=== PATIENT | male | born 1980 | race Caucasian/White ===

== ENCOUNTER 2019-11-27 06:06 | Emergency (ER) | payer BC ==
[2019-11-27 06:18] VITALS: O2SAT 99
[2019-11-27] MEDS ORDERED: Sodium Chloride 0.9% 1000 ML 1,000 ML IV STA (06:22)
[2019-11-27] MEDS ORDERED: Zofran 4 MG/2 ML VIAL IV ONE (06:22)
[2019-11-27] MEDS ORDERED: Hydromorphone 1 mg/ml Ampule IV ONE (06:22)
[2019-11-27] MEDS ORDERED: TORAdol 30 mg Injection IV ONE (06:22)
[2019-11-27] MEDS ORDERED: Sodium Chloride 0.9% 1000 ML 1,000 ML ONE (06:24)
[2019-11-27] MEDS ORDERED: TORAdol 30 mg Injection ONE (06:30)
--- NOTE | 2019-11-27 06:34 | ERPHSYRPT ---
- History of Present Illness Time Seen by Provider: 11/27/19 06:31 Historian: patient Exam Limitations: no limitations Patient Subjective Stated Complaint: pt states he started having lt side pain approx 30 min prior to arrival to er. has hx of kidney stones Triage Nursing Assessment: pt alert and oriented, answers questions approp. pt back per wheelchair, transfers to stretcher per self. skin warm and dry. abd soft and nontender. bowel sounds present x4. Physician History: Patient is a 39-year-old white male who has a history of kidney stones who presents with sudden onset of left flank and left lower quadrant pain radiating to the groin area which started 30 minutes prior to arrival. This if it is a kidney stone will be his fourth. Shortly after arrival in the ER his pain did improve markedly. Timing/Duration: today Activities at Onset: none Quality: sharpness, stabbing Abdominal Pain Onset Location: LLQ, flank (left) Pain Radiation: groin Severity of Pain-Max: severe Severity of Pain-Current: mild Modifying Factors: Improves With: nothing Associated Symptoms: diaphoresis, nausea Previous symptoms: same symptoms as today Allergies/Adverse Reactions: No Known Drug Allergies Allergy (Verified 11/27/19 06:18) Home Medications: No Reportable Medications [No Reported Medications] 11/27/19 [History] Hx Tetanus, Diphtheria Vaccination/Date Given: Yes Hx Influenza Vaccination/Date Given: Yes Hx Pneumococcal Vaccination/Date Given: No Immunizations Up to Date: Yes Travel Risk - International Travel Have you traveled outside of the country in past 3 weeks: No - Coronavirus Screening Are you exhibiting any of the following symptoms?: No Close contact with a COVID-19 positive Pt in past 14-21 Days: No - Review of Systems Constitutional: No Fever, No Chills Eyes: No Symptoms Ears, Nose, & Throat: No Symptoms Respiratory: No Cough, No Dyspnea Cardiac: No Chest Pain, No Edema, No Syncope Abdominal/Gastrointestinal: Abdominal Pain, Nausea, No Vomiting, No Diarrhea Genitourinary Symptoms: No Dysuria Musculoskeletal: No Back Pain, No Neck Pain Skin: No Rash Neurological: No Dizziness, No Focal Weakness, No Sensory Changes Psychological: No Symptoms Endocrine: No Symptoms All Other Systems: Reviewed and Negative - Past Medical History Pertinent Past Medical History: Yes Other Medical History: hx kidney stones - Past Surgical History Past Surgical History: No - Social History Smoking Status: Never smoker Exposure to second hand smoke: No Drug Use: none Patient Lives Alone: No - Nursing Vital Signs Nursing Vital Signs: Initial Vital Signs Pulse Rate 91 H 11/27/19 06:10 Respiratory Rate 18 11/27/19 06:10 Blood Pressure 139/105 11/27/19 06:10 O2 Sat by Pulse Oximetry 99 11/27/19 06:10 Pain Scale Pain Intensity 6 - Physical Exam General Appearance: no apparent distress, alert Eye Exam: PERRL/EOMI, eyes nml inspection Ears, Nose, Throat Exam: normal ENT inspection, pharynx normal, moist mucous membranes Neck Exam: normal inspection, non-tender, supple, full range of motion Respiratory Exam: normal breath sounds, lungs clear, No respiratory distress Cardiovascular Exam: regular rate/rhythm, normal heart sounds Gastrointestinal/Abdomen Exam: soft, No tenderness, No mass Back Exam: normal inspection, normal range of motion, No CVA tenderness, No vertebral tenderness Extremity Exam: normal inspection, normal range of motion, pelvis stable Neurologic Exam: alert, oriented x 3, cooperative, normal mood/affect, nml cerebellar function, sensation nml, No motor deficits Skin Exam: normal color, warm, dry SpO2: 99 - Course Nursing assessment & vital signs reviewed: Yes - CT Exams Abdomen/Pelvis CT Interpretation: Other (My review of the CT indicates a 3 mm stone in the bladder) Ordered Tests: Active Orders 24 hr Category Date Time Status ABDOMEN AND PELVIS W/0 CONTRAS [CT] Stat Exams 11/27/19 06:21 Ordered CBC W DIFF Stat Lab 11/27/19 06:22 Ordered CMP Stat Lab 11/27/19 06:22 Ordered Manual Differential NC Stat Lab 11/27/19 06:22 Completed UA W/RFX UR CULTURE Stat Lab 11/27/19 06:22 Uncollected Medication Summary Generic Name Dose Route Start Last Admin Trade Name Freq PRN Reason Stop Dose Admin Sodium Chloride 1,000 mls @ 999 mls/hr 11/27/19 06:22 11/27/19 06:26 Sodium Chloride 0.9% 1000 Ml IV 11/27/19 07:22 999 mls/hr .Q1H1M STA Administration Discontinued Medications Generic Name Dose Route Start Last Admin Trade Name Freq PRN Reason Stop Dose Admin Hydromorphone HCl 1 mg 11/27/19 06:22 Hydromorphone 1 Mg/Ml Ampule IV 11/27/19 06:23 STAT ONE Sodium Chloride Confirm 11/27/19 06:24 Sodium Chloride 0.9% 1000 Ml Administered 11/27/19 06:25 Dose 1,000 mls @ ud .ROUTE .STK-MED ONE Ketorolac Tromethamine 30 mg 11/27/19 06:22 11/27/19 06:30 Toradol 30 Mg Injection IV 11/27/19 06:23 30 mg STAT ONE Administration Ketorolac Tromethamine Confirm 11/27/19 06:30 Toradol 30 Mg Injection Administered 11/27/19 06:31 Dose 30 mg .ROUTE .STK-MED ONE Ondansetron HCl 4 mg 11/27/19 06:22 Zofran 4 Mg/2 Ml Vial IV 11/27/19 06:23 STAT ONE Lab/Rad Data: Laboratory Result Diagrams 11/27/19 06:22 11/27/19 06:22 Laboratory Results 11/27/19 11/27/19 Range/Units 06:22 06:22 WBC 8.5 (4.0-10.5) K/mm3 RBC 5.08 (4.1-5.6) M/mm3 Hgb 15.8 (12.5-18.0) gm/dl Hct 46.6 (42-50) % MCV 91.7 (78-100) fl MCH 31.1 (26-32) pg MCHC 33.9 (32-36) g/dl RDW 12.3 (11.5-14.0) % Plt Count 216 (150-450) K/mm3 MPV 11.5 H (7.5-11.0) fl Sodium 139 (137-145) mmol/L Potassium 3.4 L (3.5-5.1) mmol/L Chloride 103 (98-107) mmol/L Carbon Dioxide 26 (22-30) mmol/L Anion Gap 13.7 (5-15) MEQ/L BUN 15 (9-20) mg/dL Creatinine 1.15 (0.66-1.25) mg/dL Estimated GFR > 60.0 ML/MIN Glucose 107 H (74-106) mg/dL Calcium 9.2 (8.4-10.2) mg/dL Total Bilirubin 0.90 (0.2-1.3) mg/dL AST 29 (17-59) U/L ALT 18 (0-50) U/L Alkaline Phosphatase 82 (38-126) U/L Serum Total Protein 8.1 (6.3-8.2) g/dL Albumin 4.7 (3.5-5.0) g/dL - Progress Progress: improved Progress Note: 11/27/19 07:06 Patient's pain resolved almost completely shortly after his arrival in the ER CT scan shows what appears to be a 3 mm stone in the bladder with his first uri nation he did pass an approximately 3 mm stone. And his pain is resolved. - Departure Departure Disposition: Home Clinical Impression: Left ureteral stone Condition: Stable Critical Care Time: No Referrals: TRACE TAYLOR MD [Primary Care Provider] - Instructions: Kidney Stones (DC)
[2019-11-27 06:47] LABS: Hematocrit 46.6 % (42-50); Hemoglobin 15.8 gm/dl (12.5-18.0); Mean Cell Volume 91.7 fl (78-100); Mean Corpuscular Hemoglobin 31.1 pg (26-32); Mean Corpuscular Hgb Concent. 33.9 g/dl (32-36); Mean Platelet Volume 11.5 fl (7.5-11.0); Platelet Count 216 K/mm3 (150-450); Red Blood Count 5.08 M/mm3 (4.1-5.6); Red Cell Distribution Width 12.3 % (11.5-14.0); White Blood Count 8.5 K/mm3 (4.0-10.5)
[2019-11-27 07:02] LABS: ALBUMIN 4.7 g/dL (3.5-5.0); ALKALINE PHOSPHATASE 82 U/L (38-126); ANION GAP 13.7 MEQ/L (5-15); BLOOD UREA NITROGEN 15 mg/dL (9-20); CHLORIDE 103 mmol/L (98-107); Calcium 9.2 mg/dL (8.4-10.2); Carbon Dioxide 26 mmol/L (22-30); Creatinine 1 1.15 mg/dL (0.66-1.25); Glucose 107 mg/dL (74-106); Potassium 3.4 mmol/L (3.5-5.1); SGOT/AST 29 U/L (17-59); SGPT/ALT 18 U/L (0-50); SODIUM 139 mmol/L (137-145); Total Protein 8.1 g/dL (6.3-8.2)
[2019-11-27 07:14] VITALS: BP 127/84; PULSE 77
[2019-11-27 07:21] LABS: Appearance SLIGHTLY CLOUDY (CLEAR); Bilirubin NEGATIVE (NEGATIVE); Blood MODERATE Ery/ul (0-5); Glucose NEGATIVE (NEGATIVE); Ketones NEGATIVE (NEGATIVE); Leukocyte Esterase NEGATIVE (NEGATIVE); Mucus SLIGHT /HPF (NEGATIVE); Nitrite NEGATIVE (NEGATIVE); Protein,Urine Dip NEGATIVE (Negative); Specific Gravity 1.021 (1.005-1.025); Urobilinogen NEGATIVE mg/dL (0-1); WBC 0-2 /HPF (0-5)
[2019-11-27 07:35] LABS: BAND 2 % (0.0-2.0); Eosinophil 2 % (0.00-3.0); Lymphocytes 36 % (24-44); Monocyte 7 % (0.0-12.0); Neutrophils 53 % (36.-66.); Platelet Estimate NORMAL (NORMAL); Total Cells Counted 100
--- NOTE | 2019-11-27 19:16 | XRAY ---
Indication: Left flank pain. History stone. Multiple contiguous axial images obtained through the abdomen and pelvis without contrast as ordered. Comparison: None Lung bases are clear. Heart is not enlarged. Noncontrasted stomach and bowel loops appear nonobstructed. Normal appendix. No free fluid/air. Left kidney demonstrates at least 3 and right kidney demonstrates at least 2 nonobstructing micro-calculi. Posterior urinary bladder demonstrates punctate calculus. No hydronephrosis or hydroureter. Remaining liver, gallbladder, pancreas, spleen, adrenal glands, kidneys, ureters, bladder, and aorta appear unremarkable for noncontrast exam. Osseous structures intact. No ventral or inguinal hernias. Impression: 1. Urinary bladder punctate calculus without hydronephrosis/hydroureter. Additional bilateral renal micro-calculi. 2. Remaining CT abdomen/pelvis without contrast exam is negative. Comment: Preliminary interpretation was made by [facility]. No critical discrepancy.
== END 2019-11-27 07:19 | disposition home or self-care (01) ==
LOC: ED 06:06
DX: N20.1 Calculus of ureter (principal)
CPT/HCPCS: 36415; 74176; 80053; 81001; 85025; 96360; 96374; 99284; J1885

== ENCOUNTER 2021-01-06 04:47 | Emergency (ER) | payer BC ==
[2021-01-06] MEDS ORDERED: Sodium Chloride 0.9% 1000 ML 1,000 ML IV STA (04:58)
--- NOTE | 2021-01-06 04:58 | ERPHSYRPT ---
- History of Present Illness Time Seen by Provider: 01/06/21 04:58 Historian: patient Exam Limitations: no limitations Physician History: This a 40-year-old white male who has had recurrent ureterolithiasis in the past and presents with sudden onset of left flank pain radiating down into his left groin that occurred prior to arrival to the emergency department. Patient's symptoms are classic for his other episodes of ureterolithiasis. He had mild nausea but no vomiting. He has had no chest pain. No shortness of breath. There are no abdominal pain. Timing/Duration: today Quality: aching Abdominal Pain Onset Location: flank (Left) Pain Radiation: groin Severity of Pain-Max: moderate (Left) Severity of Pain-Current: moderate Modifying Factors: Improves With: nothing Associated Symptoms: nausea Previous symptoms: same symptoms as today Allergies/Adverse Reactions: No Known Drug Allergies Allergy (Verified 01/06/21 05:00) Hx Tetanus, Diphtheria Vaccination/Date Given: Yes Hx Influenza Vaccination/Date Given: Yes Hx Pneumococcal Vaccination/Date Given: No Travel Risk - International Travel Have you traveled outside of the country in past 3 weeks: No - Coronavirus Screening Are you exhibiting any of the following symptoms?: No Close contact with a COVID-19 positive Pt in past 14-21 Days: No - Review of Systems Constitutional: No Symptoms Eyes: No Symptoms Ears, Nose, & Throat: No Symptoms Respiratory: No Symptoms Cardiac: No Symptoms Abdominal/Gastrointestinal: Nausea, No Abdominal Pain, No Vomiting, No Diarrhea Genitourinary Symptoms: Flank Pain (Left) Musculoskeletal: No Symptoms Skin: No Symptoms Neurological: No Symptoms Psychological: No Symptoms Endocrine: No Symptoms Hematologic/Lymphatic: No Symptoms Immunological/Allergic: No Symptoms All Other Systems: Reviewed and Negative - Past Medical History Pertinent Past Medical History: Yes Other Medical History: hx kidney stones - Past Surgical History Past Surgical History: No - Social History Smoking Status: Never smoker Exposure to second hand smoke: No Drug Use: none Patient Lives Alone: No - Nursing Vital Signs Nursing Vital Signs: Initial Vital Signs Temperature 97.3 F 01/06/21 05:01 Pulse Rate 99 H 01/06/21 05:01 Respiratory Rate 22 01/06/21 05:01 Blood Pressure 160/103 01/06/21 05:01 O2 Sat by Pulse Oximetry 98 01/06/21 05:01 Pain Scale Pain Intensity 0 - Physical Exam General Appearance: mild distress, alert, anxiety Eye Exam: PERRL/EOMI, eyes nml inspection Ears, Nose, Throat Exam: normal ENT inspection, moist mucous membranes Neck Exam: normal inspection, non-tender, supple, full range of motion Respiratory Exam: normal breath sounds, lungs clear, airway intact, No chest tenderness, No respiratory distress Cardiovascular Exam: regular rate/rhythm, normal heart sounds, normal peripheral pulses Gastrointestinal/Abdomen Exam: soft, normal bowel sounds, No tenderness, No guarding Rectal Exam: not done Back Exam: normal inspection, normal range of motion, CVA tenderness (Left), No vertebral tenderness Extremity Exam: normal inspection, normal range of motion, pelvis stable Neurologic Exam: alert, oriented x 3, cooperative, 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, normal mood/affect, nml cerebellar function, nml station & gait, sensation nml Skin Exam: normal color, warm, dry Lymphatic Exam: No adenopathy SpO2 Interpretation: normal O2 Delivery: Room Air - Course Nursing assessment & vital signs reviewed: Yes Ordered Tests: Active Orders 24 hr Category Date Time Status IV Insertion STAT Care 01/06/21 04:58 Active ABDOMEN AND PELVIS W/0 CONTRAS [CT] Stat Exams 01/06/21 04:59 Taken AMYLASE Stat Lab 01/06/21 05:32 Completed CBC W DIFF Stat Lab 01/06/21 05:32 Completed CMP Stat Lab 01/06/21 05:32 Completed LIPASE Stat Lab 01/06/21 05:32 Completed Lactic Acid Stat Lab 01/06/21 05:21 Completed UA W/RFX UR CULTURE Stat Lab 01/06/21 05:00 Completed Medication Summary Discontinued Medications Generic Name Dose Route Start Last Admin Trade Name Feiq PRN Reason Stop Dose Admin Hydromorphone HCl 1 mg 01/06/21 04:58 01/06/21 05:53 Hydromorphone 1 Mg/Ml Injection IV 01/06/21 04:59 Not Given STAT ONE Hydromorphone HCl Confirm 01/06/21 05:43 Hydromorphone 1 Mg/Ml Injection Administered 01/06/21 05:44 Dose 1 mg .ROUTE .STK-MED ONE Sodium Chloride 1,000 mls @ 999 mls/hr 01/06/21 04:58 01/06/21 05:45 Sodium Chloride 0.9% 1000 Ml IV 01/06/21 05:58 999 mls/hr .Q1H1M STA Administration Sodium Chloride Confirm 01/06/21 05:43 Sodium Chloride 0.9% 1000 Ml Administered 01/06/21 05:44 Dose 1,000 mls @ ud .ROUTE .STK-MED ONE Ketorolac Tromethamine 30 mg 01/06/21 04:58 01/06/21 05:53 Toradol 30 Mg Injection IV 01/06/21 04:59 Not Given STAT ONE Ketorolac Tromethamine Confirm 01/06/21 05:43 Toradol 30 Mg Injection Administered 01/06/21 05:44 Dose 30 mg .ROUTE .STK-MED ONE Ondansetron HCl 4 mg 01/06/21 04:58 01/06/21 05:53 Zofran 4 Mg/2 Ml Vial IV 01/06/21 04:59 Not Given STAT ONE Ondansetron HCl Confirm 01/06/21 05:43 Zofran 4 Mg/2 Ml Vial Administered 01/06/21 05:44 Dose 4 mg .ROUTE .STK-MED ONE Lab/Rad Data: Laboratory Result Diagrams 01/06/21 05:32 01/06/21 05:32 Laboratory Results 01/06/21 01/06/21 01/06/21 Range/Units 05:32 05:32 05:21 WBC 10.4 (4.0-10.5) K/mm3 RBC 4.98 (4.1-5.6) M/mm3 Hgb 15.3 (12.5-18.0) gm/dl Hct 46.0 (42-50) % MCV 92.4 (78-100) fl MCH 30.7 (26-32) pg MCHC 33.3 (32-36) g/dl RDW 12.7 (11.5-14.0) % Plt Count 274 (150-450) K/mm3 MPV 10.7 (7.5-11.0) fl Gran % 45.4 (36.0-66.0) % Eos # (Auto) 0.13 (0-0.5) Absolute Lymphs (auto) 4.37 (1.0-4.6) Absolute Monos (auto) 1.12 (0.0-1.3) Lymphocytes % 42.1 (24.0-44.0) % Monocytes % 10.8 (0.0-12.0) % Eosinophils % 1.3 (0.00-5.0) % Basophils % 0.4 (0.0-0.4) % Absolute Granulocytes 4.73 (1.4-6.9) Basophils # 0.04 (0-0.4) Sodium 139 (137-145) mmol/L Potassium 3.5 (3.5-5.1) mmol/L Chloride 103 (98-107) mmol/L Carbon Dioxide 28 (22-30) mmol/L Anion Gap 11.7 (5-15) MEQ/L BUN 19 (9-20) mg/dL Creatinine 1.21 (0.66-1.25) mg/dL Estimated GFR > 60.0 ML/MIN Glucose 112 H (74-106) mg/dL Lactic Acid 1.7 (0.4-2.0) Calcium 9.3 (8.4-10.2) mg/dL Total Bilirubin 1.10 (0.2-1.3) mg/dL AST 26 (17-59) U/L ALT 19 (0-50) U/L Alkaline Phosphatase 80 (38-126) U/L Serum Total Protein 8.3 H (6.3-8.2) g/dL Albumin 4.7 (3.5-5.0) g/dL Amylase 71 (30-110) U/L Lipase 115 (23-300) U/L Urine Color (YELLOW) Urine Appearance (CLEAR) Urine pH (5-6) Ur Specific [place] (1.005-1.025) Urine Protein (Negative) Urine Ketones (NEGATIVE) Urine Blood (0-5) Demarcus/ul Urine Nitrite (NEGATIVE) Urine Bilirubin (NEGATIVE) Urine Urobilinogen (0-1) mg/dL Ur Leukocyte Esterase (NEGATIVE) Urine WBC (Auto) (0-5) /HPF Urine RBC (Auto) (0-2) /HPF U Epithel Cells (Auto) (FEW) /HPF Urine Bacteria (Auto) (NEGATIVE) /HPF Urine Culture Reflexed (NO) Urine Glucose (NEGATIVE) mg/dL 01/06/21 Range/Units 05:00 WBC (4.0-10.5) K/mm3 RBC (4.1-5.6) M/mm3 Hgb (12.5-18.0) gm/dl Hct (42-50) % MCV (78-100) fl MCH (26-32) pg MCHC (32-36) g/dl RDW (11.5-14.0) % Plt Count (150-450) K/mm3 MPV (7.5-11.0) fl Gran % (36.0-66.0) % Eos # (Auto) (0-0.5) Absolute Lymphs (auto) (1.0-4.6) Absolute Monos (auto) (0.0-1.3) Lymphocytes % (24.0-44.0) % Monocytes % (0.0-12.0) % Eosinophils % (0.00-5.0) % Basophils % (0.0-0.4) % Absolute Granulocytes (1.4-6.9) Basophils # (0-0.4) Sodium (137-145) mmol/L Potassium (3.5-5.1) mmol/L Chloride (98-107) mmol/L Carbon Dioxide (22-30) mmol/L Anion Gap (5-15) MEQ/L BUN (9-20) mg/dL Creatinine (0.66-1.25) mg/dL Estimated GFR ML/MIN Glucose (74-106) mg/dL Lactic Acid (0.4-2.0) Calcium (8.4-10.2) mg/dL Total Bilirubin (0.2-1.3) mg/dL AST (17-59) U/L ALT (0-50) U/L Alkaline Phosphatase (38-126) U/L Serum Total Protein (6.3-8.2) g/dL Albumin (3.5-5.0) g/dL Amylase (30-110) U/L Lipase (23-300) U/L Urine Color YELLOW (YELLOW) Urine Appearance CLEAR (CLEAR) Urine pH 6.0 (5-6) Ur Specific [place] 1.026 (1.005-1.025) Urine Protein NEGATIVE (Negative) Urine Ketones NEGATIVE (NEGATIVE) Urine Blood NEGATIVE (0-5) Demarcus/ul Urine Nitrite NEGATIVE (NEGATIVE) Urine Bilirubin NEGATIVE (NEGATIVE) Urine Urobilinogen 2 (0-1) mg/dL Ur Leukocyte Esterase NEGATIVE (NEGATIVE) Urine WBC (Auto) NONE (0-5) /HPF Urine RBC (Auto) NONE (0-2) /HPF U Epithel Cells (Auto) NONE (FEW) /HPF Urine Bacteria (Auto) NONE SEEN (NEGATIVE) /HPF Urine Culture Reflexed NO (NO) Urine Glucose NEGATIVE (NEGATIVE) mg/dL - Progress Progress: improved Progress Note: 01/06/21 06:20 Patient reevaluated and he states that his pain is completely relieved after the IV hydration and Toradol injection. He is refusing the narcotic medication. 01/06/21 07:03 CAT scan of the abdomen pelvis without contrast shows a punctate stone dependently in the urinary bladder. There is no obstructive stone no hydro- utero nephrosis Counseled pt/family regarding: lab results, diagnosis, need for follow-up, rad results - Departure Departure Disposition: Home Clinical Impression: Calcium ureterolithiasis Condition: Stable Critical Care Time: No Referrals: DOCTOR,NO FAMILY [Primary Care Provider] - Additional Instructions: Drink plenty of fluids. Use ibuprofen 600 mg orally 3 times a day with food for the next 4 to 5 days. Take prescriptions as prescribed. Prescriptions: Hydrocodone/APAP 5/325 [Kenna 5/325 mg] 1 each PO Q8H PRN PRN #6 tablet MDD 3 PRN Reason: Pain
[2021-01-06 05:35] LABS: Absolute Neutrophil Ct (ANC) 4.73 (1.4-6.9); BASOPHIL % 0.4 % (0.0-0.4); Basophil (Absolute #) 0.04 (0-0.4); Eosinophil % 1.3 % (0.00-5.0); Eosinophil (Absolute #) 0.13 (0-0.5); Hemoglobin 15.3 gm/dl (12.5-18.0); Lymphocyte (Absolute #) 4.37 (1.0-4.6); Lymphocytes % 42.1 % (24.0-44.0); Mean Cell Volume 92.4 fl (78-100); Mean Corpuscular Hemoglobin 30.7 pg (26-32); Mean Corpuscular Hgb Concent. 33.3 g/dl (32-36); Mean Platelet Volume 10.7 fl (7.5-11.0); Monocyte (Absolute #) 1.12 (0.0-1.3); Monocytes % 10.8 % (0.0-12.0); Neutrophil % 45.4 % (36.0-66.0); Platelet Count 274 K/mm3 (150-450); Red Blood Count 4.98 M/mm3 (4.1-5.6); Red Cell Distribution Width 12.7 % (11.5-14.0); White Blood Count 10.4 K/mm3 (4.0-10.5)
[2021-01-06] MEDS ORDERED: Sodium Chloride 0.9% 1000 ML 1,000 ML ONE (05:43)
[2021-01-06] MEDS ORDERED: Zofran 4 MG/2 ML VIAL ONE (05:43)
[2021-01-06] MEDS ORDERED: Hydromorphone 1 mg/ml Injection ONE (05:43)
[2021-01-06] MEDS ORDERED: TORAdol 30 mg Injection ONE (05:43)
[2021-01-06] MEDS: Zofran 4 MG/2 ML VIAL IV ONE ×2 (05:45→05:53)
[2021-01-06] MEDS: Hydromorphone 1 mg/ml Injection IV ONE ×2 (05:46→05:53)
[2021-01-06] MEDS: TORAdol 30 mg Injection IV ONE ×2 (05:46→05:53)
[2021-01-06 05:47] LABS: ALBUMIN 4.7 g/dL (3.5-5.0); ALKALINE PHOSPHATASE 80 U/L (38-126); AMYLASE 71 U/L (30-110); ANION GAP 11.7 MEQ/L (5-15); BLOOD UREA NITROGEN 19 mg/dL (9-20); CHLORIDE 103 mmol/L (98-107); Calcium 9.3 mg/dL (8.4-10.2); Carbon Dioxide 28 mmol/L (22-30); Creatinine 1 1.21 mg/dL (0.66-1.25); EST GLOMERULAR FILTRATION RATE > 60.0 ML/MIN; Glucose 112 mg/dL (74-106); LIPASE 115 U/L (23-300); Potassium 3.5 mmol/L (3.5-5.1); SGOT/AST 26 U/L (17-59); SGPT/ALT 19 U/L (0-50); SODIUM 139 mmol/L (137-145); Total Protein 8.3 g/dL (6.3-8.2)
[2021-01-06 05:52] LABS: Appearance CLEAR (CLEAR); Bilirubin NEGATIVE (NEGATIVE); Blood NEGATIVE Ery/ul (0-5); Glucose NEGATIVE (NEGATIVE); Ketones NEGATIVE (NEGATIVE); Leukocyte Esterase NEGATIVE (NEGATIVE); Nitrite NEGATIVE (NEGATIVE); Protein,Urine Dip NEGATIVE (Negative); Specific Gravity 1.026 (1.005-1.025); Urobilinogen 2 mg/dL (0-1)
[2021-01-06 05:54] LABS: Bacteria NONE SEEN /HPF (NEGATIVE)
[2021-01-06 06:22] VITALS: BP 109/82; PULSE 82; O2SAT 99
--- NOTE | 2021-01-06 08:30 | XRAY ---
Indication: Left flank pain. Multiple contiguous axial images obtained through the abdomen and pelvis without contrast. Comparison: November 27, 2019. Lung bases again hyperinflated and clear. Heart not enlarged. Noncontrasted stomach and bowel loops are nonobstructed with normal appendix. Again a few nonobstructing bilateral renal punctate calculi and urinary bladder punctate calculus posteriorly. No free fluid/air. Remaining liver, gallbladder, pancreas, spleen, adrenal glands, kidneys, ureters, bladder, and aorta are unremarkable for noncontrast exam. Osseous structures intact. Impression: 1. Again urinary bladder punctate calculus and bilateral renal micro-calculi. Negative for obstructive uropathy. 2. Remaining CT abdomen/pelvis without contrast exam is negative. Comment: Preliminary interpretation made by [facility]. No critical discrepancy.
== END 2021-01-06 07:13 | disposition home or self-care (01) ==
LOC: ED 04:47
DX: N20.1 Calculus of ureter (principal)
CPT/HCPCS: 36000; 36415; 74176; 80053; 81001; 82150; 83605; 83690; 85025; 96360; 99284; J1170; J1885; J2405

== ENCOUNTER 2021-08-20 20:19 | Emergency (ER) | payer BC ==
[2021-08-20 20:37] VITALS: BP 140/92; PULSE 80; O2SAT 98
--- NOTE | 2021-08-20 20:41 | ERPHSYRPT ---
- History of Present Illness Time Seen by Provider: 08/20/21 20:35 Source: patient Exam Limitations: no limitations Physician History: Patient is a 41-year-old white male who was jumping over a ditch and rolled his right ankle when he stepped in a hole. He has marked swelling of the ankle. He has no other complaint of pain or injury. This occurred just prior to arrival. He heard a large loud pop at the time of the injury Method of Injury: fell, twisted Occurred: just prior to arrival Quality: throbbing Severity of Pain-Max: moderate Severity of Pain-Current: moderate Lower Extremities Pain: ankle: right Modifying Factors: Improves With: cold therapy, movement, rest Associated Symptoms: snapping sensation, popping sensation Allergies/Adverse Reactions: No Known Drug Allergies Allergy (Verified 08/20/21 20:37) Home Medications: Celecoxib 100 mg [celeBREX 100 MG] 200 mg PO DAILY 08/20/21 [History] Hx Tetanus, Diphtheria Vaccination/Date Given: Yes Hx Influenza Vaccination/Date Given: Yes Hx Pneumococcal Vaccination/Date Given: No Travel Risk - Vaccine Status Have you recieved a Covid-19 vaccination: Yes Business Development Coordinator: [employer] - Vaccination Dates Date of 2cond Vaccination (if applicable): 07/10/20 - Review of Systems Constitutional: No Fever, No Chills Eyes: No Symptoms Ears, Nose, & Throat: No Symptoms Respiratory: No Cough, No Dyspnea Cardiac: No Chest Pain, No Edema, No Syncope Abdominal/Gastrointestinal: No Abdominal Pain, No Nausea, No Vomiting, No Diarrhea Genitourinary Symptoms: No Dysuria Musculoskeletal: No Back Pain, No Neck Pain Skin: No Rash Neurological: No Dizziness, No Focal Weakness, No Sensory Changes Psychological: No Symptoms Endocrine: No Symptoms All Other Systems: Reviewed and Negative - Past Medical History Pertinent Past Medical History: Yes Neurological History: No Pertinent History Cardiac History: Arrhythmia Respiratory History: Asthma Endocrine Medical History: No Pertinent History Musculoskeletal History: Osteoarthritis Other Medical History: HISTORY OF CONCUSSIONS, AFIB - Past Surgical History Past Surgical History: No - Social History Smoking Status: Never smoker Exposure to second hand smoke: No Drug Use: none Patient Lives Alone: No - Nursing Vital Signs Nursing Vital Signs: Initial Vital Signs Temperature 97.6 F 08/20/21 20:27 Pulse Rate 80 08/20/21 20:27 Respiratory Rate 16 08/20/21 20:27 Blood Pressure 140/92 08/20/21 20:27 O2 Sat by Pulse Oximetry 98 08/20/21 20:27 Pain Scale Pain Intensity 4 - Physical Exam General Appearance: alert Eyes, Ears, Nose, Throat Exam: moist mucous membranes Neck Exam: non-tender, supple Cardiovascular/Respiratory Exam: chest non-tender, normal breath sounds, regular rate/rhythm, no respiratory distress Gastrointestinal/Abdominal Exam: non-tender, guarding Back Exam: normal inspection, No vertebral tenderness Ankle Exam: right ankle: bone tenderness, deformity, soft tissue tenderness, swelling Neuro/Tendon Exam: normal sensation, normal motor functions Mental Status Exam: alert, oriented x 3, cooperative Skin Exam: normal color, warm, dry SpO2 Interpretation: normal O2 Delivery: Room Air - Course Nursing assessment & vital signs reviewed: Yes - Radiology Exams Right Ankle X-ray Interpretation: Interpreted by me, Negative (No fracture or dislocation seen there is soft tissue swelling noted) Ordered Tests: Active Orders 24 hr Category Date Time Status Cold Application STAT Care 08/20/21 20:30 Active ANKLE (3 VIEWS) Stat Exams 08/20/21 20:26 Taken - Progress Progress: unchanged - Departure Departure Disposition: Home Clinical Impression: Sprain of right ankle Condition: Stable Critical Care Time: No Referrals: DOCTOR,NO FAMILY [Primary Care Provider] - Follow up/PCP as directed Instructions: Ankle Sprain (DC)
--- NOTE | 2021-08-21 08:46 | XRAY ---
Indication: Pain and swelling. Comparison: None 3 view right ankle demonstrates moderate lateral soft tissue swelling. No other bony, articular, or soft tissue abnormalities.
== END 2021-08-20 21:32 | disposition home or self-care (01) ==
LOC: ED 20:19
DX: S93.401A Sprain of unspecified ligament of right ankle, initial encounter (principal); W18.42XA Slipping, tripping and stumbling without falling due to stepping into hole or opening, initial encounter; M25.571 Pain in right ankle and joints of right foot
CPT/HCPCS: 73610; 99283